=== PATIENT | female | born 1980 | race Caucasian/White ===

== ENCOUNTER 2019-06-20 07:22 | Outpatient (CLI) | payer OTHER, SELFPAY ==
[2019-06-20] MEDS: TERBUTALINE 1 MG/ML VIAL 0.25 MG SUBCUT (08:05)
--- NOTE | 2019-06-20 08:44 | P.PCN_ITS ---
Procedures Date/Time Date of procedure: 06/20/19 Time of procedure: 08:15 General Procedure description: Patient is a 38-year-old 1 EDC 07/10/2019 who is a patient of Evy Reina CNM, who is 37 weeks by dates with persistent breech presentation comes in for version attempt. The risk of the procedure including rupture membranes, onset of labor, abruption of placenta, distress that could result in need for emergency section were discussed. Consent form was reviewed with the patient in signed. The patient had a reactive nonstress test. Blood pressure 117/63, pulse of 78, temperature 36.9? baseline heart tones 140. Ultrasound showed the infant in breech presentation with an anterior placenta and adequate amniotic fluid. The patient had an IV access performed and was given 0.25 mg of subcu terbutalin e. Attempts times 4 were performed with the fetus not turned. In between each attempt heart tones were seen to be normal. After the procedure the patient was monitored for 1 hour and had a reactive nonstress prior to discharge. Patient was warned to call if she has leakage of fluid, vaginal bleeding increasing abdominal pain or decreased movement. Discussed with her nurse automatic grinding machine operator that we can schedule at the patient's due date. The automatic grinding machine operator will talk to the patient and we will schedule. Complications: none
--- NOTE | 2019-06-20 13:49 | P.TNLD_ITS ---
Visit Information Visit Information Date of evaluation: 06/20/19 Primary OB Provider: Evy Reina On-call OB Provider: Flor Helms Reason for Evaluation: Yes other Comments/Additional reasons for admission: Breech presentation for external version. See procedure note. Evaluation Evaluation Baseline heart rate: 140 Variability: Moderate (11-25) monitor accelerations: Present monitor decelerations: Absent Cervical dilation (cm): 0 Cervical effacement (%): 0 station: -4 Diagnosis, Plan/Disposition Final Diagnosis (1) Breech presentation: Current Visit: No Status: Acute (2) 37 weeks gestation of : Current Visit: No Status: Acute Plan/Disposition Plan: Failed attempted external version. Patient was discharged home after 1 hour monitoring with routine precautions. She will follow up with her vending machine host/hostess later this week and discuss with her vending machine host/hostess scheduling . OB Disposition: home
== END 2019-06-20 09:50 | disposition home or self-care (01) ==
LOC: LABOR 09:41 → OB 06-21 12:35
PROVIDERS: Visit Provider Specialist
DX: O32.1XX0 Maternal care for breech presentation, not applicable or unspecified (principal); Z3A.37 37 weeks gestation of pregnancy
CPT/HCPCS: 59025; 59412; 76815; 96372; G0378; G0379